=== PATIENT | male | born 1960 | race Caucasian/White ===

== ENCOUNTER 2021-05-17 11:28 | Day surgery (SDC) | payer MEDICAID, SELFPAY ==
[~2021-05-17] VITALS: Ht 190.5 cm; Wt 131.1 kg
[2021-05-17] MEDS ORDERED: DIPHENHYDRAMINE INJ 50 MG/ML VIAL IV ONE (11:29)
[2021-05-17] MEDS ORDERED: MIDAZOLAM HCL 5 MG/5 ML VIAL ONE (13:20)
[2021-05-17] MEDS ORDERED: DIPHENHYDRAMINE INJ 50 MG/ML VIAL ONE (13:20)
[2021-05-18 13:38] VITALS: BP_SYST 180
== END 2021-05-17 15:05 | disposition home or self-care (01) ==
LOC: SDS 11:28 → STU 11:30 → SDS 15:05
PROVIDERS: ATTEND Internal Medicine
DX: M51.16 Intervertebral disc disorders with radiculopathy, lumbar region (principal); M51.9 Unspecified thoracic, thoracolumbar and lumbosacral intervertebral disc disorder; M54.2 Cervicalgia; M79.10 Myalgia, unspecified site; G89.4 Chronic pain syndrome; I25.10 Atherosclerotic heart disease of native coronary artery without angina pectoris; Z20.822 Contact with and (suspected) exposure to COVID-19; Z79.899 Other long term (current) drug therapy
CPT/HCPCS: 36415; 62323; 87426; J1200; J2250; 76000